=== PATIENT | female | born 2000 | race Caucasian/White ===

== ENCOUNTER 2020-07-20 08:19 | Inpatient (IN) ==
[2020-07-20] MEDS ORDERED: 0.9 % Sodium Chloride 1,000 ML IV ONE (08:40)
[2020-07-20 09:37] LABS: Basophils % 0.6 %; Eosinophils % 0.6 %; Hematocrit 41.4 % (35.3-44.9); Hemoglobin 13.5 g/dL (11.5-15.4); Immature Granulocytes % 0.3 % (0-4); Lymphocytes # 1.7 K/mcL (0.6-4.6); Lymphocytes % 23.8 %; Mean Corpuscular HGB Conc 32.6 g/dL (31.6-35.5); Mean Corpuscular Hemoglobin 30.7 pg (28.0-33.3); Mean Corpuscular Volume 94.1 fL (83.0-100.0); Mean Platelet Volume 11.6 fL (9.4-12.4); Monocytes # 0.4 K/mcL (0.0-1.3); Monocytes % 5.3 %; Platelet Count 180 K/mcL (140-400); Red Cell Distribution Width 11.8 % (11.5-14.5); Segmented Neutrophils % 69.4 %; White Blood Count 7.2 K/mcL (4.3-11.1)
[2020-07-20 09:48] LABS: Estimated Average Glucose 97 mg/dl
[2020-07-20 09:53] LABS: Blood Urea Nitrogen 9 mg/dL (6-20); Carbon Dioxide 21 mEq/L (23-29); Chloride 111 mEq/L (98-107); Potassium 3.2 mEq/L (3.5-5.1); Sodium 141 mEq/L (136-145)
[2020-07-20 09:54] LABS: Acetaminophen < 10 mcg/mL (10-20); BUN/Creatinine Ratio 10 (6-26); Calcium 9.4 mg/dL (8.6-10.3); Chol/HDL Ratio 3.8 (0-4.9); Cholesterol 110 mg/dL (< 200); Ethanol < 10 mg/dL (Less than 10); Glucose 120 mg/dL (70-105); HDL Cholesterol 29 mg/dL (40-59); LDL Cholesterol,Calculated 69 mg/dL (< 100); Osmolality,Calculated 292 (280-300); Salicylate < 2.5 mg/dL (15.0-30.0); Triglycerides 60 mg/dL (< 150); eGFR For African Americans > 60; eGFR For Non-African Americans > 60
[2020-07-20 09:54] LABS: Bilirubin,Urine Negative (Negative); Blood,Urine Negative (Negative); Clarity,Urine Turbid (Clear); Color,Urine Yellow (Yellow); Glucose,Urine (UA) Normal (Normal); Ketones,Urine Negative (Negative); Leukocyte Esterase,Urine Small (Negative); Mucus,Urine Many per lpf (None-Few); Nitrite,Urine Negative (Negative); Protein,Urine 100 mg/dL (Neg-Trace); Specific Gravity,Urine > 1.030 (1.010-1.025); Squamous Epithelial Cell,Urine Few per hpf (None-Few)
[2020-07-20 10:05] LABS: Amphetamine Screen,Urine Negative ng/mL (Cutoff=1000); Barbiturate Screen,Urine Negative ng/mL (Cutoff=200); Benzodiazepines Screen,Urine Negative ng/mL (Cutoff=200); Cannabinoid Screen,Urine Negative ng/mL (Cutoff = 50); Cocaine Screen,Urine Negative ng/mL (Cutoff= 300); Opiate Screen,Urine Negative ng/mL (Cutoff=300); Phencyclidine Screen,Urine Negative ng/mL (Cutoff=25)
[2020-07-20] MEDS ORDERED: hydrOXYzine pamoate 25 MG CAPSULE PO PRN (13:14)
[2020-07-20] MEDS ORDERED: haloperidoL 5 MG TABLET PO PRN (13:14)
[2020-07-20] MEDS ORDERED: traZODone 50 MG TABLET PO PRN (13:14)
[2020-07-20] MEDS ORDERED: Haloperidol Lactate 5 MG/ML VIAL IM PRN (13:14)
[2020-07-20] MEDS ORDERED: MOM Conc 10 ML UD.LIQ PO PRN (13:14)
[2020-07-20] MEDS ORDERED: Acetaminophen 325 MG TABLET PO PRN (13:14)
[2020-07-20] MEDS ORDERED: *HR* LORazepam 2 MG/ML VIAL IM PRN (13:14)
[2020-07-20] MEDS ORDERED: Mag Hydrox/Al Hydrox/Simeth 30 ML UDC PO PRN (13:14)
[2020-07-21] MEDS: MEDROXYPROGESTERONE ACETATE 150 MG/ML IM SCH ×3 (12:38→12:41)
[2020-07-21] MEDS: [UNRECOGNIZED DRUG - OTHER] IM SCH ×3 (12:38→12:41)
[2020-07-22 10:19] VITALS: BP 100/69
== END 2020-07-22 12:00 | disposition home or self-care (01) | DRG 751 ==
LOC: EMEROOARM 08:19 → 1ANU 13:06
PROVIDERS: ADMIT Psychiatry & Neurology Psychiatry; ATTEND Psychiatry & Neurology Psychiatry